=== PATIENT | female | born 1980 | race Caucasian/White ===

== ENCOUNTER 2021-09-16 23:48 | Emergency (ER) | payer OTHER ==
[2021-09-17 00:03] VITALS: BP 106/68; PULSE 80; TEMP 97.9; BMI 27.3
[2021-09-17] MEDS ORDERED: MECLIZINE HCL 25 MG TABLET (FP) PO ONE (00:41)
[2021-09-17] MEDS ORDERED: LACTATED RINGERS SOLUTION 1000 ML INFUS.BAG IV ONE (01:05)
[2021-09-17 01:24] LABS: BASO % 0.3 % (0-2.0); EOS % 1.9 % (0-4.5); HEMATOCRIT 36.3 % (32.4-45.2); HEMOGLOBIN 12.5 GM/dL (10.7-15.3); LYMPH % 11.8 % (8-40); MCH 29.9 pg (25.7-33.7); MCHC 34.4 g/dl (32.0-36.0); MEAN CELL VOLUME 86.9 fl (80-96); MEAN PLT VOLUME 8.5 fl (7.5-11.1); MONO % 7.3 % (3.8-10.2); NEUT % 78.7 % (42.8-82.8); PLATELET COUNT 210 10^3/uL (134-434); RBC 4.17 M/mm3 (3.60-5.2); RDW 13.3 % (11.6-15.6); WHITE BLOOD COUNT 8.1 K/mm3 (4.0-10.0)
[2021-09-17 01:47] LABS: CHLORIDE 108 mmol/L (98-107); SODIUM 139 mmol/L (136-145)
[2021-09-17 01:49] LABS: CALCIUM 8.2 mg/dL (8.5-10.1)
[2021-09-17 01:50] LABS: ALBUMIN 3.3 g/dl (3.4-5.0); ANION GAP 8 MMOL/L (8-16); BLOOD UREA NITROGEN 16.8 mg/dL (7-18); CO2 23 mmol/L (21-32); GLUCOSE,RANDOM 155 mg/dL (74-106)
[2021-09-17 01:53] LABS: CREATININE 0.8 mg/dL (0.55-1.3); SGOT/AST 24 U/L (15-37); SGPT/ALT 38 U/L (13-61)
[2021-09-17 01:54] LABS: TOT PROT 7.8 g/dl (6.4-8.2)
[2021-09-17 01:55] LABS: BILIRUBIN,TOTAL 0.3 mg/dL (0.2-1)
[2021-09-17 01:56] LABS: ALK PHOS 103 U/L (45-117)
== END 2021-09-17 02:36 | disposition home or self-care (01) ==
LOC: JER 23:48
DX: R42 Dizziness and giddiness (principal)
CPT/HCPCS: 36415; 80053; 82550; 82553; 84484; 85025; 93005; 93010; 99284-25

== ENCOUNTER 2024-02-17 20:22 | Emergency (ER) | payer OTHER ==
[2024-02-17 20:30] VITALS: BP 135/76; PULSE 93; RESP 20; TEMP 98.4; BMI 32.7
[2024-02-17 21:34] LABS: URINE APPEARANCE CLEAR; URINE BILIRUBIN NEGATIVE (NEGATIVE); URINE COLOR YELLOW; URINE GLUCOSE (UA) NEGATIVE (NEGATIVE); URINE KETONE NEGATIVE (NEGATIVE); URINE LEUK ESTERASE NEGATIVE (NEGATIVE); URINE NITRITE NEGATIVE (NEGATIVE); URINE PROTEIN NEGATIVE (NEGATIVE); URINE UROBILINOGEN 0.2 mg/dL (0.2-1.0)
== END 2024-02-17 22:24 | disposition home or self-care (01) ==
LOC: JER 20:22
DX: M79.604 Pain in right leg (principal); R20.0 Anesthesia of skin; R53.1 Weakness
CPT/HCPCS: 81003; 87086; 99283-25